=== PATIENT | male | born 1975 ===

== ENCOUNTER 2017-02-28 06:14 | Day surgery (SDC) | payer BC ==
[2017-02-28] VITALS (9 sets, daily range): BP systolic 93–119; BP diastolic 41–74
[~2017-02-28] VITALS: Ht 170.2 cm; Wt 77.1 kg
[~2017-02-28 06:14] MED LIST: NKM
[2017-02-28] MEDS ORDERED: LR 1000ml 1,000 ML IVLG SCH ×2 (06:41→07:00)
--- NOTE | 2017-02-28 06:41 | Anethesia Preoperative Eval ---
Anesthesia Pre-op PMH/ROS General Date of Evaluation: Feb 28, 2017 Time of Evaluation: 06:40 Anesthesiologist: monie ASA Score: ASA 1 Mallampati Score Class I : Soft palate, uvula, fauces, pillars visible Class II: Soft palate, uvula, fauces visible Class III: Soft palate, base of uvula visible Class IV: Only hard plate visible Mallampati Classification: Class II Surgeon: cash Diagnosis: colon screening Surgical Procedure: egd/colonoscopy Anesthesia History: none Social History: smoking - nonsmoker Family History: no anesthesia problems Allergies: Coded Allergies: No Known Allergies (Unverified , 02/27/17) Medications: see eMAR Anesthesia Pre-op Phys. Exam Physician Exam Constitutional: NAD Neurologic: CN 2-12 intact Cardiovascular: RRR Respiratory: CTA Gastrointestinal: S/NT/ND Airway Exam Mallampati Score: Class II MO: full Neck: supple TMD: 2fb ROM: full Teeth: intact Anesthesia Pre-op A/P Risk Assessment & Plan Assessment: asa1 Plan: mac Status Change Before Surgery: No Pre-Antibiotics Drug: TOMAS Hatch Feb 28, 2017 06:41
[2017-02-28] MEDS ORDERED: DiphenhydrAMINE 50mg/ml Inj IVP PRN (06:45)
[2017-02-28] MEDS ORDERED: Midazolam 2mg/2ml Inj IVP PRN (06:45)
[2017-02-28] MEDS ORDERED: Atropine Inj 1mg/10ml Syr IV PRN (06:45)
[2017-02-28] MEDS ORDERED: fentaNYL 100 mcg/2 mL IV PRN (06:45)
[2017-02-28] MEDS ORDERED: Propofol 200mg/20ml IV ONE (07:00)
[2017-02-28] MEDS ORDERED: LR 1000ml ONE (07:00)
[2017-02-28] MEDS ORDERED: Lidocaine 1% MPF 10mg/ml 5ml ONE (07:00)
--- NOTE | 2017-02-28 07:18 | Pre-Procedure Note/Attestation ---
Pre-Procedure Note/Attestation Complete Prior to Procedure Planned Procedure: not applicable Procedure Narrative: EGD / Colon Indications for Procedure Pre-Operative Diagnosis: h/o polyp Attestation I attest that I discussed the nature of the procedure; its benefits; risks and complications; and alternatives (and the risks and benefits of such alternatives ), prior to the procedure, with the patient (or the patient's legal sales representative publications). I attest that, if there was a reasonable possibility of needing a blood transfusion, the patient (or the patient's legal sales representative publications) was given the [facility] standardized written summary, pursuant to the Dylon Mcbaine Blood Safety Act ([place] Health and Safety Code # 1645, as amended). I attest that I re-evaluated the patient just prior to the surgery and that there has been no change in the patient's H&P, except as documented below: MERCEDES ZHOU Feb 28, 2017 07:18
--- NOTE | 2017-02-28 10:04 | Immediate Post-Op Evaluation ---
Immediate Post-Op Evalulation Immediate Post-Op Evalulation Procedure: egd/colonoscopy Date of Evaluation: Feb 28, 2017 Time of Evaluation: 08:22 IV Fluids: 450ml lr Blood Products: none Estimated Blood Loss: negligible Blood Pressure Systolic: 110 Blood Pressure Diastolic: 65 Pulse Rate: 62 Respiratory Rate: 18 O2 Sat by Pulse Oximetry: 100 Temperature (Fahrenheit): 97.4 Pain Score (1-10): 0 Nausea: No Vomiting: No Complications none Patient Status: awake, reacts, patent Hydration Status: adequate Drug: TOMAS Hatch Feb 28, 2017 10:04
--- NOTE | 2017-02-28 10:07 | 48 Hour Post Anesthesia Eval ---
Post Anesthesia Evaluation Procedure: egd/colonoscopy Date of Evaluation: Feb 28, 2017 Time of Evaluation: 08:24 Blood Pressure Systolic: 111 0: 66 Pulse Rate: 66 Respiratory Rate: 18 Temperature (Fahrenheit): 97.4 O2 Sat by Pulse Oximetry: 100 Airway: patent Nausea: No Vomiting: No Pain Intensity: 0 Hydration Status: adequate Cardiopulmonary Status: stable Mental Status/LOC: patient returned to baseline Post-Anesthesia Complications: none Follow-up care needed: N/A TOMAS GRAY Feb 28, 2017 10:06
--- NOTE | 2017-02-28 20:00 | Procedure Note ---
DATE OF PROCEDURE: 02/28/2017 GASTROENTEROLOGY PROCEDURE REPORT PRE-ENDOSCOPIC DIAGNOSIS: History of intestinal polyp. At higher risk of intestinal adenomas and malignancy. POST-ENDOSCOPIC DIAGNOSES: 1. Normal upper endoscopy to the fourth portion of duodenum. 2. Normal colonoscopy through 5 cm into the terminal ileum. PROCEDURE: Endoscopy and colonoscopy. SURGEON: Gisella Angulo M.D. PROCEDURE IN DETAIL: The procedure, its risks and indications were explained to the patient and informed consent was obtained. The patient was then sedated in the left lateral decubitus position and a diagnostic upper endoscope was introduced through oropharynx and advanced to the duodenum. With external application of abdominal pressure, the endoscope was guided into the fourth portion of duodenum. The endoscope was then gradually withdrawn and the mucosa was examined carefully. Examination of the upper gastric mucosa did not reveal any abnormalities. Specifically, there were no residual polyp tissue found around the ampulla. Photo documentation was obtained. The endoscope was removed and the colonoscope was introduced into the rectum after a normal rectal exam was done and advanced through 5 cm into the terminal ileum. The colonoscope was then gradually withdrawn and the mucosa examined carefully. Examination was completed with the retroflexed view of the rectum. The terminal ileal mucosa as well as the colonic mucosa were entirely normal. The colonoscope was removed and the patient was sent to recovery in good condition. COMPLICATIONS: None. RECOMMENDATIONS: 1. Standard post colonoscopy instructions. 2. Outpatient followup. Gisella Angulo M.D. DR: JARON JOB#: [id number] CC: [place]
--- NOTE | 2017-02-28 21:12 | Short Stay Surgery H&P ---
History of Present Illness History of Present Illness Chief Complaint see typed H&P HPI Daniela Currie is a 41 year old male who was admitted on for Colon Screening Patient History Allergies: Coded Allergies: No Known Allergies (Unverified , 02/27/17) PAST MEDICAL HISTORY: Past Surgeries: Social History: Medication History Scheduled No Known Medications* (NKM - No Known Medications*), 0 ., (Reported) Physical Exam Vital Signs Last Vital Signs Date Time Temp Pulse Resp B/P (MAP) Pulse Ox O2 Delivery O2 Flow Rate FiO2 02/28/17 10:06 66 18 100 02/28/17 09:20 98.0 114/68 Room Air 02/28/17 08:20 2.0 Plan Attestation Are the patient's medical conditions optimized for surgery? MERCEDES ZHOU Feb 28, 2017 21:11
--- NOTE | 2017-02-28 21:12 | Endoscopy Procedure Note ---
Endoscopy Procedure Note Indication for Procedure: intestinal polyposis Procedures Performed: EGD, colonoscopy Operative Findings/Diagnosis: nl Specimen: none Pt Tolerated Procedure Well: Yes Estimated Blood Loss: none Anesthesiologist: Berry sanders Anesthesia: MAC Medication Given: see anesthesia record Implant(s) used?: No 50 yrs or older w/o bx or poly: Not Applicable 10yrs. F/U not recommended: Not Applicable If not recommended, why?: MERCEDES ZHOU Feb 28, 2017 21:12
--- NOTE | 2017-02-28 21:13 | Brief Operative Note ---
Immediate Post Operative Note Operative Note Chief Complaint: intestinal polyposis Pre-op Diagnosis: h/o polyp Procedure: EGD, Colonoscop C Post-op Diagnosis: normal Surgeon: cash Anesthesiologist: ghulam sanders Specimen: none Complications: none Condition: stable Fluids: see report Estimated Blood Loss: none Drains: none Implant(s) used?: No MERCEDES ZHOU Feb 28, 2017 21:13
== END 2017-02-28 09:50 | disposition home or self-care (01) ==
LOC: GAS 06:14
DX: Z12.11 Encounter for screening for malignant neoplasm of colon (principal)
CPT/HCPCS: 43235; 45378; J2704; J7120; 94003; 94150